=== PATIENT | male | born 1950 | race Caucasian/White ===

== ENCOUNTER 2025-04-15 16:00 | Inpatient (IN) | payer MEDICARE, OTHER ==
[~2025-04-15] VITALS: Ht 165.1 cm; Wt 80.0 kg
[2025-04-15 16:40] LABS: *BILIRUBIN,URIN 1+ (NEGATIVE); *BLOOD, URINE 2+ (NEGATIVE); *CLARITY,URINE CLOUDY (CLEAR); *COLOR,URINE YELLOW (YELLOW); *KETONES,URINE 1+ (NEGATIVE); *PROTEIN,URINE 2+ (NEGATIVE); *UROBILINOGEN,URINE 1.0 E.U./dl (NORMAL); LEUKOCYTE ESTERASE ,URINE 1+ (NEGATIVE); NITRITE, URINE POSITIVE (NEGATIVE); UGLUCOSE 1+ (NEGATIVE)
[2025-04-15 17:13] LABS: SQUAMOUS EPITHELIAL CELL,UR MODERATE /HPF (NONE SEEN)
[2025-04-15] MEDS ORDERED: GENTAMICIN SULFATE 20 MG/2 ML VIAL IV ONE (18:00)
[2025-04-15] MEDS ORDERED: CEFTRIAXONE /D5W 50ML IVPB **ER PYXIS IV ONE (18:02)
[2025-04-15] MEDS: GENTAMICIN SULFATE INJ 80 MG in IV DEXTROSE 5% 50 ML IV ONE (18:24)
[2025-04-15] MEDS ORDERED: CEFD300C3 PO (18:48)
[2025-04-15 19:22] LABS: PLATELET COUNT (AUTO) 107 K/uL (152-348); RED BLOOD CELL COUNT(AUTO) 4.60 MIL/uL (4.06-5.63); RED CELL DISTRIBUTION WIDTH 14.6 % (12.1-16.2); WHITE BLOOD COUNT (AUTO) 16.5 K/uL (3.6-10.2)
[2025-04-15 19:30] LABS: CREATININE 0.9 mg/dL (0.6-1.3); SODIUM SERUM 137 mmol/L (136-145); UREA NITROGEN, BLOOD 14 mg/dL (7-18)
[2025-04-15 19:36] LABS: ASPARTATE AMINOTRANSFERASE 15 U/L (15-37); TOTAL PROTEIN, SERUM 7.3 g/dL (6.4-8.2)
[2025-04-15 20:05] LABS: LYMPHOCYTES % (MANUAL) 7 % (20-40); MONOCYTES % (MANUAL) 10 % (2-10); NEUTROPHILS % (MANUAL) 83 % (42-75); PLATELET ESTIMATE DECREASED
[2025-04-15 20:30] VITALS: BP 131/61
[2025-04-15] MEDS ORDERED: ONDANSETRON 4 MG/2 ML VIAL IV PRN (21:30)
[2025-04-15] MEDS ORDERED: DEXTROSE 50% 50 ML DISP.SYRIN IV PRN (21:30)
[2025-04-15] MEDS ORDERED: REMEDY ESSENTIAL ZINC PASTE 113 GM TP PRN (21:30)
[2025-04-15 22:15] VITALS: BP 103/40; TEMP 98.8; O2SAT 93
[2025-04-15] MEDS: HYDROCODONE/APAP 5-325MG TABLET PO PRN (22:15)
[2025-04-15] MEDS: ZOLPIDEM 5 MG TABLET PO PRN (22:16)
[2025-04-15] MEDS: ENOXAPARIN SODIUM 40 MG/0.4 ML DISP.SYRIN SQ SCH (22:21)
[2025-04-15] MEDS: IV NS 1000 ML 1,000 ML IV PRN (22:22)
[2025-04-16 05:44] VITALS: BP 119/33; TEMP 99.1; O2SAT 97
[2025-04-16] MEDS: PANTOPRAZOLE SODIUM 40 MG TABLET.DR PO SCH (06:13)
[2025-04-16] MEDS: BLOOD SUGAR DIAGNOSTIC 1 EACH STRIP VI SCH (06:32)
[2025-04-16 07:18] LABS: PLATELET COUNT (AUTO) 99 K/uL (152-348); RED BLOOD CELL COUNT(AUTO) 4.17 MIL/uL (4.06-5.63); RED CELL DISTRIBUTION WIDTH 14.4 % (12.1-16.2); WHITE BLOOD COUNT (AUTO) 15.2 K/uL (3.6-10.2)
[2025-04-16 07:36] LABS: CREATININE 0.8 mg/dL (0.6-1.3); SODIUM SERUM 138 mmol/L (136-145); UREA NITROGEN, BLOOD 14 mg/dL (7-18)
[2025-04-16] MEDS: INSULIN REGULAR, HUMAN 1000 UNIT/10 ML VIAL SQ PRN (08:43)
[2025-04-16] MEDS ORDERED: SITA1TAB6 PO (10:06)
[2025-04-16] MEDS ORDERED: ATOR40TA PO (10:07)
[2025-04-16] MEDS ORDERED: METO-356 PO (10:07)
[2025-04-16] MEDS ORDERED: GLIM4TAB37 PO (10:07)
[2025-04-16] MEDS ORDERED: FURO20TA4 PO (10:08)
[2025-04-16] MEDS ORDERED: VERICIGUAT 2.5 MG PO (10:12)
[2025-04-16] MEDS ORDERED: FAMO40TA7 PO (10:14)
[2025-04-16] MEDS ORDERED: RIVA20TA PO (10:14)
[2025-04-16] MEDS ORDERED: MOME13HF12 INH (10:15)
[2025-04-16] MEDS ORDERED: FLUT16SP16 BNOSTRILS (10:15)
[2025-04-16] MEDS ORDERED: MAGN400C PO (10:17)
[2025-04-16] MEDS: NEUTRA PHOS PACKET PO ONE (11:55)
[2025-04-16 12:00] VITALS: BP 124/63; TEMP 99.5; O2SAT 93
[2025-04-16] MEDS: METOPROLOL SUCCINATE XL 25 MG TAB.SR.24H PO SCH (12:45)
[2025-04-16] MEDS: FUROSEMIDE 20 MG TABLET PO SCH (12:46)
[2025-04-16] MEDS: MAGNESIUM HYDROXIDE 30 ML LIQUID UDC PO PRN (13:12)
[2025-04-16] MEDS: MAGNESIUM OXIDE 400 MG TABLET PO ONE (13:30)
[2025-04-16] MEDS: FLUTICASONE PROP NASAL SPRAY 16 GM BOTTLE NS SCH (14:30)
[2025-04-16 16:23] VITALS: BP 133/56; TEMP 100.7; O2SAT 93
[2025-04-16] MEDS: FUROSEMIDE 40 MG/4 ML VIAL IV ONE (16:38)
[2025-04-16] MEDS: ACETAMINOPHEN 325 MG TABLET PO PRN (16:53)
[2025-04-16] MEDS: RIVAROXABAN 10 MG TABLET PO SCH (17:38)
[2025-04-16 18:15] VITALS: TEMP 99.8; O2SAT 95
[2025-04-16 19:00] VITALS: BP 114/49; TEMP 98.8; O2SAT 95
[2025-04-16] MEDS: MOMETASONE/FORMOTEROL 8.8 GM HFA.AER.AD INH SCH (20:32)
[2025-04-16] MEDS ORDERED: ENOXAPARIN SODIUM 40 MG/0.4 ML DISP.SYRIN SQ SCH (21:00)
[2025-04-17] VITALS: BP 122/52; TEMP 98.4; O2SAT 94
[2025-04-17 04:00] VITALS: BP 153/94; TEMP 98.3; O2SAT 94
[2025-04-17 08:10] VITALS: BP 136/64; TEMP 97.9; O2SAT 96
[2025-04-17] MEDS ORDERED: FUROSEMIDE 20 MG TABLET PO SCH (09:00)
[2025-04-17 09:45] LABS: PLATELET COUNT (AUTO) 107 K/uL (152-348); RED BLOOD CELL COUNT(AUTO) 4.33 MIL/uL (4.06-5.63); RED CELL DISTRIBUTION WIDTH 14.5 % (12.1-16.2); WHITE BLOOD COUNT (AUTO) 9.9 K/uL (3.6-10.2)
[2025-04-17 09:58] LABS: ASPARTATE AMINOTRANSFERASE 22 U/L (15-37); CREATININE 1.0 mg/dL (0.6-1.3); SODIUM SERUM 137 mmol/L (136-145); TOTAL PROTEIN, SERUM 6.9 g/dL (6.4-8.2); UREA NITROGEN, BLOOD 18 mg/dL (7-18)
[2025-04-17 11:33] VITALS: BP 136/58; TEMP 97.8; O2SAT 96
[2025-04-17] MEDS: FUROSEMIDE 20 MG TABLET PO SCH (17:10)
[2025-04-17 19:10] VITALS: BP 125/54; TEMP 99.3; O2SAT 99
[2025-04-17] MEDS: ATORVASTATIN 40 MG TABLET PO SCH (20:27)
[2025-04-17 23:50] VITALS: BP 126/52; TEMP 98.9; O2SAT 96
[2025-04-18 02:25] VITALS: O2SAT 96
[2025-04-18 06:03] VITALS: BP 136/53; TEMP 99.7; O2SAT 97
[2025-04-18 07:17] LABS: PLATELET COUNT (AUTO) 121 K/uL (152-348); RED BLOOD CELL COUNT(AUTO) 3.95 MIL/uL (4.06-5.63); RED CELL DISTRIBUTION WIDTH 14.3 % (12.1-16.2); WHITE BLOOD COUNT (AUTO) 8.0 K/uL (3.6-10.2)
[2025-04-18 07:29] LABS: CREATININE 0.8 mg/dL (0.6-1.3); SODIUM SERUM 138 mmol/L (136-145); UREA NITROGEN, BLOOD 17 mg/dL (7-18)
[2025-04-18 07:52] VITALS: BP 117/45; TEMP 98.6; O2SAT 98
[2025-04-18] MEDS ORDERED: SULF1TAB48 PO (09:16)
[2025-04-18 09:28] VITALS: BP 130/49
== END 2025-04-18 11:02 | disposition home health service (06) | DRG 872 ==
LOC: ER 16:00 → MEDSURG3 21:24 → TELE3 04-16 14:44 → MEDSURG3 04-18 09:10
PROVIDERS: ATTEND Internal Medicine
DX: A41.51 Sepsis due to Escherichia coli [E. coli] (principal); I50.42 Chronic combined systolic (congestive) and diastolic (congestive) heart failure; R17 Unspecified jaundice; D69.6 Thrombocytopenia, unspecified; N39.0 Urinary tract infection, site not specified; Z79.01 Long term (current) use of anticoagulants; I11.0 Hypertensive heart disease with heart failure; E11.65 Type 2 diabetes mellitus with hyperglycemia; J44.9 Chronic obstructive pulmonary disease, unspecified; Z95.1 Presence of aortocoronary bypass graft; I25.10 Atherosclerotic heart disease of native coronary artery without angina pectoris; E78.5 Hyperlipidemia, unspecified; Z79.84 Long term (current) use of oral hypoglycemic drugs; Z79.899 Other long term (current) drug therapy; N40.0 Benign prostatic hyperplasia without lower urinary tract symptoms; E11.9 Type 2 diabetes mellitus without complications
CPT/HCPCS: 36415; 70030-TC; 71045; 83605; 83735; 84100; 84443; 85025; 87040; 87077; 87086; 93307; 94760; G0378; J0696; J1580; J1650; J1815; J1938; J3535; J7040